=== PATIENT | male | born 2000 | race Caucasian/White ===

== ENCOUNTER 2022-08-12 02:11 | Emergency (ER) | payer BC ==
[~2022-08-12] VITALS: Ht 170.2 cm; Wt 111.1 kg
[2022-08-12 02:25] VITALS: BP_SYST 144
--- NOTE | 2022-08-12 02:25 | NUR ---
Patient ambulatory to bed 6 for evaluation and treatment
--- NOTE | 2022-08-12 02:26 | NUR ---
ER Dr.Dela Griffith at bedside examining patient.
[2022-08-12] MEDS ORDERED: ALBUTEROL SULFATE 0.083% 2.5 MG/3 ML VIAL.NEB INH ONE (02:30)
--- NOTE | 2022-08-12 02:38 | NUR ---
Breathing treatment done at bedside by RT
[2022-08-12] MEDS ORDERED: GUAI100S14 PO (02:53)
[2022-08-12] MEDS ORDERED: ALBU8.5H8 INH (02:53)
[2022-08-12] MEDS ORDERED: INHA1EAC52 MC (02:53)
--- NOTE | 2022-08-12 03:15 | NUR ---
Patient resting comfortably in bed with side rails raised. Mother at bedside. Nad noted at this time.
[2022-08-12 03:58] VITALS: BP_SYST 142
--- NOTE | 2022-08-12 03:58 | NUR ---
Pt and mother state d/c and Rx education given by RN and ERMD understood. Pt feeling better s/p breathing tx. Left a/ox4, steady gait.
== END 2022-08-12 03:58 | disposition home or self-care (01) ==
LOC: SED 02:11
DX: J40 Bronchitis, not specified as acute or chronic (principal); R06.02 Shortness of breath; R05.9 Cough, unspecified; Z79.899 Other long term (current) drug therapy
CPT/HCPCS: 99283; J7613